=== PATIENT | male | born 1950 | race Caucasian/White ===

== ENCOUNTER 2017-07-17 09:08 | Outpatient (CLI) | payer MEDICARE, BC ==
--- NOTE | 2017-07-17 12:15 | RAD ---
LUMBAR SPINE SERIES 3 VIEWS WITH FLEXION AND EXTENSION: HISTORY: Back and right hi pain. FINDINGS: Vertebral bodies are normal in height. There are prominent osteophytic changes involving the course of the spine. There is mild disk narrowing at L1-2 and L4-5 as well as L5-S1. There are pronounced degenerative facet changes of the lower lumbar spine. There is a minimal spondylolisthesis of L5 on S1 not definitely changed between flexion and extension. IMPRESSION: Arthritic changes of the spine as discussed above. POS: ESPERANZA
--- NOTE | 2017-07-17 13:11 | CT ---
CT LUMBAR SPINE NONCONTRAST: DATE: 07-17-17 HISTORY: 66-year-old male with lumbar radiculopathy. Low back pain radiating to right hip. COMPARISON: No prior CTs of the lumbar spine. FINDINGS: Vertebral body heights are maintained. There is mild disc space narrowing at several levels. There is no severe disc space narrowing at any level. There is vacuum disc phenomenon at L5-S1. There is Nakia rop's disease (degenerative changes between hypertrophic kissing spinus processes) at L3-4 and L4-5. T12-L1: Essentially normal. L1-2: Minimal disc bulge. No high grade central stenosis. Bilateral moderate neural foraminal stenosi s, left greater than right. L2-3: Mild disc bulge. Mild central spinal canal stenosis. Mild to moderate right neural foraminal st enosis. Mild left neural foraminal stenosis. L3-4: Diffuse disc bulge. Moderate bilateral neural foraminal stenosis. Ligamentum flavum thickening. Mild bilateral degenerative facet hypertrophy. Moderate central spinal canal stenosis. L4-5: Diffuse disc bulge. Mild right degenerative facet hypertrophy. Moderate right neural foraminal stenosis. Moderate left degenerative facet hypertrophy and ossification of left ligamentum flavum. Mo derate left neural foraminal stenosis. Moderate central spinal canal stenosis. L5-S1: Bilateral L5 pars interarticularis defects cause a grade I anterolisthesis of L5 on S1. Diffus e disc bulge. No central spinal canal stenosis. Severe left neural foraminal stenosis. Moderate to se moody right neural foraminal stenosis. IMPRESSION: 1. Bilateral L5 spondylolysis causing grade I spondylolisthesis at L5-S1 causing severe left neural f oraminal stenosis and moderate to severe right neural foraminal stenosis at that level. 2. Moderate central spinal canal stenosis at L3-4 and L4-5. 3. Other levels of moderate neural foraminal stenosis. POS: C
== END 2017-07-17 09:09 | disposition home or self-care (01) ==
LOC: TBSIIMAG 09:08
PROVIDERS: ATTEND Surgery
DX: M47.26 Other spondylosis with radiculopathy, lumbar region (principal); M43.17 Spondylolisthesis, lumbosacral region; M48.061 Spinal stenosis, lumbar region without neurogenic claudication; M46.96 Unspecified inflammatory spondylopathy, lumbar region
CPT/HCPCS: 72120; 72131; 72148

== ENCOUNTER 2017-07-21 15:52 | Outpatient (CLI) | payer MEDICARE, BC ==
--- NOTE | 2017-07-21 20:52 | MRI ---
MRI LUMBAR SPINE 07/21/17 COMPARISON: Comparison made to previous exam from 08/13/15. HISTORY: Lumbar radiculopathy, M54.16. Multiplanar and multisequence noncontrast enhanced MRI images of the lumbar spine obtained. T12-L1: Unremarkable. L1-2: There is some mild disc desiccation and mild facet hypertrophy. The central canal and neural fo ramen are patent. No significant interval changes seen. L2-3: Again some disc desiccation is seen. There is a broad based disc bulge with bilateral facet hyp ertrophy. No significant degree of central spinal stenosis seen. There is moderate bilateral neural f oraminal narrowing, unchanged since the previous comparison exam. L3-4: Disc desiccation is seen. There is a broad based disc bulge and bilateral facet hypertrophy. Th is results in mild to moderate central and lateral recess stenosis, slightly more prominent than on t he previous comparison exam. Mild to moderate bilateral neural foraminal narrowing is seen. L4-5: Disc desiccation is seen. There is a broad based disc bulge with bilateral facet and ligamentum flavum hypertrophy. This is not significantly changed since the previous comparison exam. Moderate b ilateral neural foraminal narrowing also seen. L5-S1: There is bilateral facet and ligamentum flavum hypertrophy. There is mild anterolisthesis of L 5 on S1. This results in moderate right and moderate to severe left L5-S1 neural foraminal narrowing. There is a broad based central and neural foraminal disc protrusion. Modic changes seen along the anterior inferior aspect of L2 as well as superior anterior aspect of th e L3 end plate as well as superior posterior L4 end plate. IMPRESSION: Multilevel lumbar disc degenerative changes and neural foraminal narrowing as described above. Some m ild increased central and neural foraminal narrowing is seen at L2-3 and L3-4. POS: OFF
== END 2017-07-21 15:53 | disposition home or self-care (01) ==
LOC: TBSIIMAG 15:52
PROVIDERS: ATTEND Surgery
DX: M47.26 Other spondylosis with radiculopathy, lumbar region (principal); M48.061 Spinal stenosis, lumbar region without neurogenic claudication
CPT/HCPCS: 72148

== ENCOUNTER 2017-09-02 11:38 | Outpatient (CLI) | payer MEDICARE, BC ==
--- NOTE | 2017-09-03 00:54 | EKG ---
Test Reason : Blood Pressure : / mmHG Vent. Rate : 057 BPM Atrial Rate : 057 BPM P-R Int : 160 ms QRS Dur : 088 ms QT Int : 412 ms P-R-T Axes : -06 051 037 degrees QTc Int : 401 ms Poor data quality, interpretation may be adversely affected Sinus bradycardia with sinus arrhythmia Otherwise normal ECG When compared with ECG of 16-APR-2016 16:32, No significant change was found Confirmed by BHARAT MORALES, . S. (4) on 09/03/2017 12:53:51 AM Referred By: SCOTT Confirmed By:DR. Vandana NICHOLSON MD
== END 2017-09-02 11:39 | disposition home or self-care (01) ==
LOC: LABBT 11:38
PROVIDERS: ATTEND Surgery
DX: Z01.818 Encounter for other preprocedural examination (principal)
CPT/HCPCS: 93005; 93010

== ENCOUNTER 2017-09-04 14:40 | Outpatient (CLI) | payer MEDICARE, BC ==
[2017-09-04 15:08] LABS: INR-International Normal Ratio 1.1; PTT 25.2 SEC (22.9-36.1)
== END 2017-09-04 14:41 | disposition home or self-care (01) ==
LOC: LABBT 14:40
PROVIDERS: ATTEND Surgery
DX: Z01.812 Encounter for preprocedural laboratory examination (principal); Z01.810 Encounter for preprocedural cardiovascular examination; M48.061 Spinal stenosis, lumbar region without neurogenic claudication; M43.16 Spondylolisthesis, lumbar region; M54.16 Radiculopathy, lumbar region
CPT/HCPCS: 85610; 85730

== ENCOUNTER 2017-09-10 08:36 | Day surgery (SDC) | payer MEDICARE, BC ==
[2017-09-02 12:02] VITALS: BMI 32.5
[2017-09-10] MEDS ORDERED: Midazolam HCl 2 mg/2 ml Vial ONE (10:03)
[2017-09-10] MEDS ORDERED: Fentanyl 100 MCG/2 ML VIAL ONE ×3 (10:03→15:48)
[2017-09-10] MEDS ORDERED: Thrombin 5000 UNITS/5 ML VIAL ONE ×2 (10:06→13:48)
[2017-09-10] MEDS ORDERED: Bacitracin Zinc Ointment 30 gm TUBE ONE (10:06)
[2017-09-10] MEDS ORDERED: Sodium Chloride 0.9% 0 ML ONE (10:07)
[2017-09-10] MEDS ORDERED: Morphine 2 MG/ML SYRINGE ONE (10:18)
[2017-09-10] MEDS ORDERED: CEFAZOLIN/Water 2 GM/20 ML SYRINGE ONE (10:28)
[2017-09-10] MEDS ORDERED: Thrombin 20 THOU.UNITS/20 ML VIAL ONE (11:03)
[2017-09-10] MEDS ORDERED: Ondansetron HCl/PF 4 MG/2 ML Vial IVP PRN ×2 (15:23→16:39)
[2017-09-10] MEDS ORDERED: Promethazine HCl 25 MG/ML VIAL IM PRN (15:23)
[2017-09-10] MEDS ORDERED: Fleet Enema 133 ML BOT PR PRN (15:23)
[2017-09-10] MEDS ORDERED: traMADol HCl 50 MG TAB PO PRN (15:23)
[2017-09-10] MEDS ORDERED: Milk Of Magnesia 30 ML UDCUP PO PRN (15:23)
[2017-09-10] MEDS ORDERED: Acetaminophen 325 MG TAB PO PRN (15:23)
[2017-09-10] MEDS ORDERED: Bisacodyl 10 MG SUPP PR PRN (15:23)
[2017-09-10] MEDS ORDERED: Mag-Al 1200 mg/1200 mg/30 ML UDCUP PO PRN (15:23)
[2017-09-10] MEDS ORDERED: Morphine 2 MG/ML SYRINGE SLOW IVP PRN (15:23)
[2017-09-10] MEDS ORDERED: Acetaminophen/Codeine 30-300mg Tablet PO PRN (15:23)
[2017-09-10] MEDS ORDERED: Famotidine 20 MG TAB PO PRN (15:25)
[2017-09-10] MEDS ORDERED: Glycopyrrolate 0.2 MG/ML 5 ML SYRINGE ONE (16:04)
[2017-09-10] MEDS ORDERED: Ondansetron HCl/PF 4 MG/2 ML Vial ONE (16:04)
[2017-09-10] MEDS ORDERED: Metoclopramide HCl 10 MG/2 ML VIAL ONE (16:04)
[2017-09-10] MEDS ORDERED: PROPOFOL 200 MG/20 ML VIAL ONE (16:04)
[2017-09-10] MEDS ORDERED: Ketorolac Tromethamine 30 MG/ML VIAL ONE (16:04)
[2017-09-10] MEDS ORDERED: diphenhydrAMINE 50 MG/ML VIAL ONE (16:04)
[2017-09-10] MEDS ORDERED: ePHEDrine/0.9% NaCl/PF SYRINGE 50 mg/10 ml ONE (16:04)
[2017-09-10] MEDS ORDERED: Lidocaine 1% PF 5 ML VIAL ONE (16:04)
[2017-09-10] MEDS ORDERED: PHENYLEPHRINE-NS 100 MCG/ML 10 ML SYRINGE ONE (16:04)
[2017-09-10] MEDS ORDERED: HYDROmorphone 0.5 MG/0.5 ML SYRINGE ONE (16:15)
[2017-09-10] MEDS ORDERED: Non-Formulary Medication 1 EACH PO PRN (16:39)
[2017-09-10] MEDS ORDERED: Promethazine HCl 25 MG/ML VIAL IM/IV PRN (16:39)
[2017-09-10] MEDS ORDERED: HYDROmorphone 2 MG/ML VIAL SLOW IVP PRN (16:39)
[2017-09-10] MEDS ORDERED: CEFAZOLIN/Water 2 GM/20 ML SYRINGE SLOW IVP SCH (18:00)
[2017-09-10] MEDS: Sodium Chloride 0.9% 1,000 ML IV SCH ×2 (18:46→20:13)
[2017-09-10] MEDS: Morphine 5 MG/ML SYRINGE SLOW IVP PRN (20:24)
[2017-09-10] MEDS: HYDROcodone/Acetaminophen 7.5/325 mg Tablet PO PRN (21:53)
[2017-09-11] MEDS: HYDROcodone/Acetaminophen 7.5/325 mg Tablet PO PRN ×3 (01:52→10:12)
[2017-09-11] MEDS: CEFAZOLIN/Water 2 GM/20 ML SYRINGE SLOW IVP SCH ×2 (03:44→12:04)
[2017-09-11] MEDS: Morphine 5 MG/ML SYRINGE SLOW IVP PRN ×4 (06:27→12:02)
[2017-09-11] MEDS ORDERED: CONFIRM ALL DAY 1 DOSES ARE TIMED FOR DAY 1 FS SCH (09:00)
[2017-09-11] MEDS: Multivit, Therapeutic 1 TAB PO SCH ×2 (09:03→10:12)
[2017-09-11] MEDS: tiZANidine HCl 4 MG TAB PO PRN ×2 (10:11→20:57)
[2017-09-11] MEDS ORDERED: methylPREDNISolone 4 mg Tablet PO SCH (12:00)
[2017-09-11] MEDS: Gabapentin 100 MG CAP PO SCH ×2 (12:09→22:21)
[2017-09-11] MEDS: methylPREDNISolone 4 mg Tablet PO SCH ×3 (13:41→21:02)
[2017-09-11] MEDS: HYDROcodone/Acetaminophen 10/325 mg Tablet PO PRN ×3 (13:41→22:21)
--- NOTE | 2017-09-11 16:30 | OP ---
DATE OF SURGERY: 09/10/2017 SURGEON: Jersey Nicole M.D. WATER SOFTENER SERVICER: Pancho Maynard PA-C OR: 12. WOUND: Type 1 wound. PREPROCEDURE DIAGNOSES: Multilevel lumbar stenosis with lumbar spondylolisthesis and L5 spondylolist hesis with bilateral L5 radiculopathy. POSTPROCEDURE DIAGNOSES: Multilevel lumbar stenosis with lumbar spondylolisthesis and L5 spondylolis thesis with bilateral L5 radiculopathy. PROCEDURES PERFORMED: 1. L4-L5, L5-S1 laminectomies, partial facetectomies and foraminotomies over the L4, L5, and S1 nerv e roots. 2. Placement of screw julián fixation L5-S1 bilaterally with posterolateral arthrodesis L5-S1 bilateral ly with local bone autograft obtained from same incision and BMP, arthrodesis posterolateral L5-S1 wi th screw julián fixation. DESCRIPTION OF PROCEDURE: After informed consent was obtained from the patient, the patient was brou ght to OR. Proper patient pause and identification was carried out. He was placed prone on the oper ating room table and all appropriate points were padded. We identified the L4, L5 and S1 dorsal spin es and a linear xiang was made over this region. This area was sterilely cleansed, prepared, and drap ed. Proper patient pause and identification was carried out. The wound was then opened with a combi nation of sharp, monopolar and blunt dissection and the L4, L5 and S1 dorsal spines and lamina were e xposed, the L5 transverse processes and sacral ala were also exposed along with the L5-S1 facets in t heir entirety. Copious irrigation occurred. Hemostasis was maximized throughout. We then identifie d the L4, L5 and S1 regions and L4, L5 and S1 laminectomies, facetectomies and foraminotomies were pe rformed. We were careful to preserve the facet complexes at L4-L5. We had excellent decompression o f the L5 nerve roots bilaterally and the right L5 nerve root, more edematous and erythematous than th e left L5 nerve root. Nevertheless, we assured excellent freedom. We then turned our attention to p lacement of screw julián fixation given the spondylolisthesis from the obvious pars defects bilaterally at L5. We placed screw julián fixation at L5-S1. Final tightening occurred. Again, a copious irrigati on and hemostasis was maximized and performed again and decortication over the posterolateral region then occurred. We then placed local bone autograft taken from same incision and BMP over the postero lateral gutters for arthrodesis. We then assured hemostasis in the wound and DuraSeal was placed ove r the dura to protect the dura. Although no CSF leak was encountered, the wound was then closed in a natomic layers following the sprinkling of vancomycin powder. The patient then emerged from anesthes ia.
--- NOTE | 2017-09-11 18:29 | PRG ---
DATE OF SERVICE: 09/11/2017 Mr. Beverly is postoperative day #1 from L4-S1 laminectomies, partial facetectomies and foraminotomie s for decompression of the L5 nerve roots with L5-S1 screw julián fixation and fusion. The biggest issu e overnight has been pain in particular in the back and into the left lower extremity. This is a rad iculitis, not surprising given the amount of compression. He had his L5 nerve root; it was more comp ressed preoperatively than his right L5 nerve root. Nevertheless, the right L5 nerve root appeared t o be more erythematous during surgery. We achieved excellent decompression on fluoroscopy and CT luzma ging intraoperatively is very pleased with our construct. This morning, he states that the pain is w hen he stands up and he feels as if he cannot put weight on his leg; however, on exam, he has excelle nt strength throughout his bilateral lower extremity myotomes and as such, I do not suspect a neurolo gical deficit here, but simply a radiculitis likely involving the left L5 nerve root. We will emphas ize effective pain management control and initiate Medrol Dosepak and gabapentin along with physiatry and social work consultations. We will continue to work on mobilizing the patient; however, at this point, I have let him know that I will be fine with resting throughout the morning and early afterno on and attempting later today. He will simply need time to recover. I do not think it is necessary to pursue imaging again given the excellent strength throughout his lower extremity myotomes.
[2017-09-11] MEDS: Sodium Chloride 0.9% 1,000 ML IV SCH (20:26)
[2017-09-12] MEDS: Sodium Chloride 0.9% 1,000 ML IV SCH ×2 (04:00→21:47)
[2017-09-12] MEDS: HYDROcodone/Acetaminophen 10/325 mg Tablet PO PRN ×5 (05:19→21:48)
[2017-09-12] MEDS: Gabapentin 100 MG CAP PO SCH ×3 (05:19→21:46)
[2017-09-12] MEDS: Multivit, Therapeutic 1 TAB PO SCH (09:19)
[2017-09-12] MEDS: methylPREDNISolone 4 mg Tablet PO SCH ×3 (09:20→17:43)
[2017-09-12] MEDS ORDERED: methylPREDNISolone 4 mg Tablet PO SCH (21:00)
[2017-09-13] MEDS: HYDROcodone/Acetaminophen 10/325 mg Tablet PO PRN ×5 (02:38→21:50)
[2017-09-13] MEDS: Gabapentin 100 MG CAP PO SCH ×3 (06:25→21:51)
[2017-09-13] MEDS: Multivit, Therapeutic 1 TAB PO SCH (08:15)
[2017-09-13] MEDS: methylPREDNISolone 4 mg Tablet PO SCH ×4 (10:08→21:51)
[2017-09-13] MEDS: Sodium Chloride 0.9% 1,000 ML IV SCH ×2 (11:17→22:45)
[2017-09-14] MEDS: HYDROcodone/Acetaminophen 10/325 mg Tablet PO PRN ×5 (03:14→21:42)
[2017-09-14] MEDS: Gabapentin 100 MG CAP PO SCH ×3 (05:58→21:42)
[2017-09-14] MEDS: Multivit, Therapeutic 1 TAB PO SCH (08:30)
[2017-09-14] MEDS: methylPREDNISolone 4 mg Tablet PO SCH ×3 (08:31→17:25)
--- NOTE | 2017-09-14 09:08 | PRG ---
DATE OF SERVICE: 09/14/2017 Mr. Beverly continues to recover from his lumbar laminectomy fusion. He is doing well. He states he does have some left buttock pain, but it is certainly improving. He has been mobilizing with more e ase. I am very pleased with how he is doing at this point. His strength is excellent. We will plan to begin to work towards dismissal over the next day or two. Pain control is the biggest issue.
[2017-09-14] MEDS: Sodium Chloride 0.9% 1,000 ML IV SCH (11:41)
[2017-09-15] MEDS: HYDROcodone/Acetaminophen 10/325 mg Tablet PO PRN ×4 (01:32→13:23)
[2017-09-15] MEDS: Sodium Chloride 0.9% 1,000 ML IV SCH (04:16)
[2017-09-15] MEDS: Gabapentin 100 MG CAP PO SCH ×2 (05:24→13:23)
[2017-09-15] MEDS ORDERED: methylPREDNISolone 4 mg Tablet PO SCH (08:00)
[2017-09-15] MEDS: Multivit, Therapeutic 1 TAB PO SCH (09:36)
--- NOTE | 2017-09-15 12:30 | PRG ---
DATE OF SERVICE: 09/15/2017 HISTORY: Mr. Beverly is now postoperative day #05, having undergone a posterior lumbar fusion with Dameon Nicole. The patient continues to improve. He has been ambulating in the halls with a rolling wal ker. He does have occasional left buttock pain with increased activity, but states overall this is i mproving. He had a bowel movement yesterday and states that he does continue to feel better. He ludy erated a regular diet. He is voiding and his pain is controlled satisfactorily with oral pain medica tions. He remains at his neurologic baseline with good strength in the bilateral lower extremities. I did uncover his incision and the incision is healing well, cosmo in place without any dehiscence , drainage or erythema. At this time, the patient is stable for discharge at any time. We will have case management, arrange home health, PT. I have provided appropriate prescriptions including presc ription for a rolling walker. Again, we hope by this afternoon, the patient will be stable for disch arge. Please call with any changes in the patient's neurologic status. Appropriate outpatient [facility] appointments have already been scheduled. Pancho Maynard PA-C dictating for Dr. Jersey Nicole.
[2017-09-15 14:12] VITALS: BP 129/69; TEMP 99
[2017-09-16] MEDS ORDERED: methylPREDNISolone 4 mg Tablet PO SCH (08:00)
--- NOTE | 2017-09-16 11:58 | DIS ---
DATE OF ADMISSION: 09/10/2017 DATE OF DISCHARGE: 09/15/2017 DISCHARGE DIAGNOSES: 1. Multilevel lumbar stenosis. 2. Lumbar spondylolisthesis. HOSPITAL COURSE: Mr. Beverly was admitted to [facility] to undergo L4-S1 laminectomies with L5-S1 posterior lumbar fusion with Dr. Nicole. The patient tolerated the procedure well and was kep t for several overnight stays for adequate pain control as he did have some left buttock pain postope ratively. At the time of discharge the patient was very pleased with his outcome. He did have some continued left buttock pain, although states overall it was improving daily. He was ambulating, tole rating a solid diet, pain controlled with oral medications and voiding spontaneously. Appropriate ou tpatient follow up appointments were scheduled and patient education was provided.
== END 2017-09-15 14:10 | disposition home or self-care (01) ==
LOC: SDC 08:36 → EDSTATUS 13:00 → 3SE 17:57 → SURG B 09-11 16:31 → SURG A 09-11 16:36 → SDC 09-15 14:10
PROVIDERS: ATTEND Surgery
PROC: 01NB0ZZ Release Lumbar Nerve, Open Approach (ICD-10-PCS; principal; 2017-09-10)
DX: M48.061 Spinal stenosis, lumbar region without neurogenic claudication (principal); M43.16 Spondylolisthesis, lumbar region; M54.16 Radiculopathy, lumbar region; K21.9 Gastro-esophageal reflux disease without esophagitis; M19.90 Unspecified osteoarthritis, unspecified site; Z79.899 Other long term (current) drug therapy; Z98.41 Cataract extraction status, right eye; Z98.42 Cataract extraction status, left eye; Z96.1 Presence of intraocular lens; Z96.651 Presence of right artificial knee joint; Z90.49 Acquired absence of other specified parts of digestive tract; Z98.890 Other specified postprocedural states
CPT/HCPCS: 20930; 20936; 22612; 22840; 63047; 63048; 76001; 96374 ×2; 97110 ×3; 97116 ×3; 97139 ×4; 97530; 97535; C1713 ×2; G8978; G8979; G8987; G8988; J2270; A4216; J0131; J1170; J1200; J1885; J2001; J2250; J2405; J2704; J2765; J3010; J3370; J3490

== ENCOUNTER 2017-10-14 17:25 | Emergency (ER) | payer MEDICARE, BC ==
--- NOTE | 2017-10-14 20:32 | ULT ---
VENOUS DUPLEX SONOGRAM RIGHT LOWER EXTREMITY: 10/14/17 HISTORY: Right leg pain and swelling. FINDINGS: The right common femoral vein and greater saphenous junction were evaluated along with the femoral, d eep femoral, popliteal, and posterior tibial veins. There is good color and spectral doppler flow, co mpression, and augmentation. At the right popliteal fossa, a lobular fluid collection measures up to 4.8 cm length x 1.5 cm depth. IMPRESSION: 1. No sonographic evidence of DVT right lower extremity. 2. Large right Arita's cyst. POS: ESPERANZA
== END 2017-10-14 20:15 | disposition home or self-care (01) ==
LOC: ERS 17:25
DX: R60.0 Localized edema (principal); Z87.442 Personal history of urinary calculi; Z79.891 Long term (current) use of opiate analgesic; Z79.899 Other long term (current) drug therapy

== ENCOUNTER 2017-11-02 14:21 | Outpatient (CLI) | payer MEDICARE, BC ==
--- NOTE | 2017-11-02 16:20 | RAD ---
2 VIEWS LUMBAR SPINE: Date: 11/02/17 HISTORY: Lumbar radiculopathy. Follow-up to back surgery, which patient had performed on 09/10/17. Patient com plains of low back pain that extends down left leg. COMPARISON: 07/17/17. FINDINGS: There have been interval postsurgical changes related to posterior fusion at the L5-S1 level with bip edicular screws and posterior rods transfixing this level. Grade I anterolisthesis of L5 on S1 is aga in seen. Laminectomy defect is present at this level. Multilevel degenerative changes are again seen within the cervical spine, overall similar to the prio r exam. Vertebral body heights are within normal limits. No other interval change. IMPRESSION: Postsurgical changes related to interval posterior fusion at the lumbosacral junction. Multilevel deg enerative changes are again seen throughout the lumbar spine. POS: ESPERANZA
== END 2017-11-02 14:22 | disposition home or self-care (01) ==
LOC: TBSIIMAG 14:21
PROVIDERS: ATTEND Surgery
DX: M47.26 Other spondylosis with radiculopathy, lumbar region (principal); Z98.1 Arthrodesis status
CPT/HCPCS: 72100

== ENCOUNTER 2018-07-30 07:54 | Day surgery (SDC) | payer MEDICARE, BC ==
[2018-07-29 10:48] VITALS: BMI 29.9
[2018-07-30] MEDS ORDERED: Bupivacaine/Epinephrine 0.25% 30 ML VIAL ONE (08:53)
[2018-07-30] MEDS ORDERED: CEFAZOLIN 2 GM/50 ML BAG ONE (08:53)
[2018-07-30] MEDS ORDERED: Midazolam HCl 2 mg/2 ml Vial ONE (09:00)
[2018-07-30] MEDS ORDERED: Fentanyl 100 MCG/2 ML VIAL ONE (09:00)
[2018-07-30 09:10] LABS: #Basophils 0.1 thou/uL (0.0-0.2); #Eosinphils 0.3 thou/uL (0.0-0.7); #Lymphocytes 2.8 thou/uL (1.20-3.40); #Monocytes 0.4 thou/uL (0.11-0.59); %Basophils 1.7 % (0.0-1.0); %Eosinophils 4.6 % (0.0-10.0); %Lymphocytes 41.8 % (21.0-51.0); %Monocytes 6.5 % (0.0-10.0); %Neutrophils 45.5 % (42.0-75.0); Hemoglobin 14.2 g/dL (14.0-18.0); Mean Corpuscular HGB CONC 33.9 g/dL (32.0-36.0); Mean Corpuscular Hemoglobin 29.8 pg (27.0-31.0); Mean Corpuscular Volume 87.8 fL (78.0-98.0); Mean Platelet Volume 8.2 fL (7.4-10.4); Platelet Count 180 thou/uL (130-400); RBC Distribution Width 12.6 % (11.5-14.5); Red Blood Cell (RBC) Count 4.78 mill/uL (4.70-6.10); White Blood Cell (WBC) Count 6.6 thou/uL (4.8-10.8)
[2018-07-30 09:17] LABS: ALT (SGPT) 15 U/L (8-55); AST (SGOT) 14 U/L (5-34); Albumin 3.8 g/dL (3.4-4.8); Alkaline Phosphatase 89 U/L (40-150); Anion Gap 11 mmol/L (10-20); BUN (Urea Nitrogen) 13 mg/dL (8.4-25.7); Bilirubin, Total 0.5 mg/dL (0.2-1.2); Calc. Creatinine Clearance 121 mL/min (70-130); Calcium 9.4 mg/dL (7.8-10.44); Carbon Dioxide 25 mmol/L (23-31); Chloride 107 mmol/L (98-107); Estimated GFR-MDRD 89; Globulin 2.7 g/dL (2.4-3.5); Glucose 98 mg/dL (80-115); Protein, Total 6.5 g/dL (5.8-8.1); Sodium 139 mmol/L (136-145)
--- NOTE | 2018-07-30 11:38 | OP ---
DATE OF PROCEDURE: 07/30/2018 PREOPERATIVE DIAGNOSIS: Right inguinal hernia. PROCEDURE PERFORMED: Right inguinal hernia repair with mesh. INDICATIONS: A 67-year-old male who has a painful right groin bulge, found to have a hernia. FINDINGS: Right direct inguinal hernia. DESCRIPTION OF PROCEDURE: After informed consent was obtained, the patient was taken to the operating room and given general endotracheal anesthesia, and placed in the supine position. Abdomen was prepped and draped in the usual fashion. Local anesthesia was infiltrated subcutaneously and deep. A transverse right inguinal incision was performed. Subcu divided sharply. The fascia of external oblique was incised in direction of fibers through the external ring. Spermatic cord isolated with a Oseas drain. The hernia sac was dissected from surrounding cord structures down to the floor, circumscribed, and reduced. Reduction maintained with a PHS hernia system. The posterior layer placed in the preperitoneal space, anterior was laid out, sutured to the pubic tubercle medially, laterally, tucked under the external oblique fashion. The cord was placed anatomic and the fascia was closed with a running 3-0 Vicryl. Yue was closed with interrupted 3-0 Vicryl and skin was closed with a running subcuticular 4-0 Rapide. Steri-Strips applied. Sterile bandage applied. The patient tolerated the procedure well and transferred to Recovery in good condition. Sponge and needle count verified correct x2. Job ID: [id number]
[2018-07-30] MEDS ORDERED: HYDROcodone/Acetaminophen 5/325 mg Tablet ONE (12:58)
== END 2018-07-30 13:05 | disposition home or self-care (01) ==
LOC: CANPRESDC → SDC 07:54
PROVIDERS: ATTEND Surgery
PROC: 0YU50JZ Supplement Right Inguinal Region with Synthetic Substitute, Open Approach (ICD-10-PCS; principal; 2018-07-30)
DX: K40.90 Unilateral inguinal hernia, without obstruction or gangrene, not specified as recurrent (principal); Z79.82 Long term (current) use of aspirin; Z79.899 Other long term (current) drug therapy; Z88.8 Allergy status to other drugs, medicaments and biological substances
CPT/HCPCS: 49505; 80053; 85025; 93005; C1781; 36415; 93010; J2250; J3010

== ENCOUNTER 2018-09-14 16:33 | Emergency (ER) | payer MEDICARE, BC ==
[2018-09-14] MEDS ORDERED: HYDROcodone/Acetaminophen 10/325 mg Tablet ONE (17:33)
--- NOTE | 2018-09-14 18:49 | RAD ---
RIGHT SHOULDER 3 VIEWS: Date: 09/14/18 HISTORY: Right shoulder pain, possible right shoulder dislocation. 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 No evidence for acute fracture or dislocation. IMPRESSION: Extensive degenerative and osteoarthrosis changes of the AC joint and glenohumeral joint without acut e fracture or dislocation. POS: ESPERANZA
== END 2018-09-14 17:41 | disposition home or self-care (01) ==
LOC: ERS 16:33
DX: S43.004A Unspecified dislocation of right shoulder joint, initial encounter (principal); X58.XXXA Exposure to other specified factors, initial encounter

== ENCOUNTER 2018-09-22 03:02 | Outpatient (CLI) | payer MEDICARE, BC ==
[2018-09-22 14:36] LABS: #Basophils 0.1 thou/uL (0.0-0.2); #Eosinphils 0.4 thou/uL (0.0-0.7); #Lymphocytes 3.2 thou/uL (1.20-3.40); #Monocytes 0.6 thou/uL (0.11-0.59); #Neutrophils 3.6 thou/uL (1.40-6.50); %Basophils 1.2 % (0.0-1.0); %Lymphocytes 40.1 % (21.0-51.0); %Neutrophils 45.7 % (42.0-75.0); Hemoglobin 14.4 g/dL (14.0-18.0); Mean Corpuscular HGB CONC 33.2 g/dL (32.0-36.0); Mean Corpuscular Hemoglobin 29.7 pg (27.0-31.0); Mean Corpuscular Volume 89.6 fL (78.0-98.0); Mean Platelet Volume 8.3 fL (7.4-10.4); Platelet Count 178 thou/uL (130-400); RBC Distribution Width 12.8 % (11.5-14.5); Red Blood Cell (RBC) Count 4.83 mill/uL (4.70-6.10); White Blood Cell (WBC) Count 7.9 thou/uL (4.8-10.8)
[2018-09-22 14:59] LABS: Anion Gap 13 mmol/L (10-20); BUN (Urea Nitrogen) 17 mg/dL (8.4-25.7); Calc. Creatinine Clearance 0 mL/min (70-130); Calcium 9.5 mg/dL (7.8-10.44); Carbon Dioxide 24 mmol/L (23-31); Chloride 107 mmol/L (98-107); Estimated GFR-MDRD 79; Glucose 80 mg/dL (80-115); Potassium 3.9 mmol/L (3.5-5.1); Sodium 140 mmol/L (136-145)
--- NOTE | 2018-09-24 08:55 | EKG ---
Test Reason : Blood Pressure : / mmHG Vent. Rate : 064 BPM Atrial Rate : 064 BPM P-R Int : 176 ms QRS Dur : 086 ms QT Int : 410 ms P-R-T Axes : 042 066 063 degrees QTc Int : 422 ms Normal sinus rhythm Cannot rule out Anterior infarct , age undetermined Abnormal ECG When compared with ECG of 30-JUL-2018 08:37, No significant change was found Confirmed by DR. Chicho BARKER ([id number]) on 09/24/2018 8:55:27 AM Referred By: FREDO Confirmed By:DR. Chicho BARKER
== END 2018-09-22 03:03 | disposition home or self-care (01) ==
LOC: LABBT 03:02
PROVIDERS: ATTEND Orthopaedic Surgery
DX: Z01.818 Encounter for other preprocedural examination (principal); M75.101 Unspecified rotator cuff tear or rupture of right shoulder, not specified as traumatic
CPT/HCPCS: 80048; 85025; 93005; 93010

== ENCOUNTER 2018-09-24 08:47 | Day surgery (SDC) | payer MEDICARE, BC ==
[2018-09-22 13:36] VITALS: BMI 30.3
[2018-09-24] MEDS ORDERED: CEFAZOLIN 2 GM/50 ML BAG ONE (09:18)
[2018-09-24] MEDS ORDERED: Midazolam HCl 2 mg/2 ml Vial ONE (11:04)
[2018-09-24] MEDS ORDERED: Fentanyl 100 MCG/2 ML VIAL ONE ×2 (11:04→13:12)
[2018-09-24] MEDS ORDERED: Ropivacaine 0.5% HCl/PF (150 MG/30 ML VIAL) ONE (11:33)
[2018-09-24] MEDS ORDERED: Ropivacaine 0.2% HCl/PF 20 ML ONE (11:35)
[2018-09-24] MEDS ORDERED: Promethazine HCl 25 MG/ML VIAL IM PRN (12:56)
[2018-09-24] MEDS ORDERED: HYDROcodone/Acetaminophen 5/325 mg Tablet PO PRN ×2 (12:56)
[2018-09-24] MEDS ORDERED: Ropivacaine 0.2% 550 ML 550 ML NERVE BLCK SCH (12:56)
[2018-09-24] MEDS ORDERED: Zolpidem Tartrate 5 MG TAB PO PRN (12:56)
[2018-09-24] MEDS ORDERED: Ondansetron PF 4 MG/2 ML Vial IVP PRN (12:56)
[2018-09-24] MEDS ORDERED: traMADol HCl 50 MG TAB PO PRN ×2 (12:56)
[2018-09-24] MEDS ORDERED: Dexamethasone 20 MG/5 ML VIAL ONE (13:59)
[2018-09-24] MEDS ORDERED: Glycopyrrolate 0.2 MG/ML 5 ML SYRINGE ONE (13:59)
[2018-09-24] MEDS ORDERED: PROPOFOL 200 MG/20 ML VIAL ONE (13:59)
[2018-09-24] MEDS ORDERED: Lidocaine 1% PF 5 ML VIAL ONE (13:59)
[2018-09-24] MEDS ORDERED: Ondansetron PF 4 MG/2 ML Vial ONE (13:59)
[2018-09-24] MEDS ORDERED: Rocuronium Bromide 10 MG/ML (10ML VIAL) ONE (13:59)
[2018-09-24] MEDS ORDERED: ePHEDrine 50 MG/ML VIAL ONE (13:59)
[2018-09-24] MEDS ORDERED: Ketorolac Tromethamine 30 MG/ML VIAL ONE (13:59)
--- NOTE | 2018-09-24 19:24 | OP ---
DATE OF PROCEDURE: 09/24/2018 PREOPERATIVE DIAGNOSIS: Rotator cuff tear, right. POSTOPERATIVE DIAGNOSIS: Rotator cuff tear, right. PROCEDURE: Open rotator cuff repair. ANESTHESIA: General. BLOOD LOSS: Less than 100. SPECIMENS: None. COMPLICATIONS: None. ASSISTANTS: Otto. DESCRIPTION OF PROCEDURE: The patient was taken to the operating room, where general anesthesia was induced. The patient was placed in beach-chair position. Right arm was prepped and draped in usual sterile fashion. Then I did my standard open approach starting of the acromion, extending distally. I opened the raphe between the anterior and middle thirds of the deltoid, taking care to preserve the nerve distally for anterior inferior acromioplasty. CA ligament was taken down. Hemostasis was obtained for the rotator cuff tear and mobilized subacromial bursa and tear using a small Sanjiv blunt elevator and placed a Casey suture through the greater tuberosity and four sutures were passed up to the rotator cuff tear and tied down with a good watertight repair using a horizontal mattress sutures and reinforced with a double row using a self-punching SwiveLock device was then drained, irrigated and evacuated. Deltoid was repaired back to bone using four #1 Ethibond sutures. The interval was also closed with 2-0 Vicryl. Subcutaneously tissue was closed with 2-0 Vicryl and skin was closed with cosmo. Sterile dressing was applied. There were no complications. Job ID: [id number]
== END 2018-09-24 16:00 | disposition home or self-care (01) ==
LOC: SDC 08:47
PROVIDERS: ATTEND Orthopaedic Surgery
PROC: 0LM10ZZ Reattachment of Right Shoulder Tendon, Open Approach (ICD-10-PCS; principal; 2018-09-24)
PROC: 0RHJ04Z Insertion of Internal Fixation Device into Right Shoulder Joint, Open Approach (ICD-10-PCS; 2018-09-24)
DX: S46.011A Strain of muscle(s) and tendon(s) of the rotator cuff of right shoulder, initial encounter (principal); M19.90 Unspecified osteoarthritis, unspecified site; K21.9 Gastro-esophageal reflux disease without esophagitis; E78.5 Hyperlipidemia, unspecified; I10 Essential (primary) hypertension; E66.9 Obesity, unspecified; Z68.30 Body mass index [BMI] 30.0-30.9, adult; Z87.891 Personal history of nicotine dependence; Z79.82 Long term (current) use of aspirin; Z79.899 Other long term (current) drug therapy; Z88.8 Allergy status to other drugs, medicaments and biological substances; X50.0XXA Overexertion from strenuous movement or load, initial encounter
CPT/HCPCS: 23412; 97139; A4306; C1713; J1100; J1885; J2001; J2250; J2405; J2704; J2795; J3010; J3490

== ENCOUNTER 2022-06-16 09:05 | Outpatient (CLI) | payer MEDICARE, BC ==
[2022-06-16] MEDS ORDERED: Iopamidol-370 76% 500 ML 1 ML ONE (14:14)
== END 2022-06-16 09:06 | disposition home or self-care (01) ==
LOC: BICCT 09:05
PROVIDERS: ATTEND Surgery
DX: M62.08 Separation of muscle (nontraumatic), other site (principal)
CPT/HCPCS: 74177; 82565; Q9967

== ENCOUNTER 2022-07-24 05:57 | Observation (INO) | payer MEDICARE, BC ==
[2022-07-24] MEDS ORDERED: fentaNYL PF 100 MCG/2 ML SYRINGE ONE (06:25)
[2022-07-24] MEDS ORDERED: Thrombin 5000 UNITS/5 ML VIAL ONE (06:49)
[2022-07-24] MEDS ORDERED: FENTANYL 50 MCG/ML 1 ML VIAL ONE (06:50)
[2022-07-24] MEDS ORDERED: Vancomycin 1 GM VIAL ONE (06:50)
[2022-07-24] MEDS ORDERED: CEFAZOLIN 2 GM VIAL ONE (07:23)
[2022-07-24] MEDS ORDERED: Sodium Chloride 0.9% 100 ML ONE (07:23)
[2022-07-24] MEDS ORDERED: Ondansetron PF 4 MG/2 ML Vial ONE (07:39)
[2022-07-24] MEDS ORDERED: PROPOFOL 200 MG/20 ML VIAL ONE (07:39)
[2022-07-24] MEDS ORDERED: NEOSTIGMINE 3 MG/3 ML SYR 3 MG/3 ML SYRINGE ONE (07:39)
[2022-07-24] MEDS ORDERED: ePHEDrine 50 MG/ML VIAL ONE (07:39)
[2022-07-24] MEDS ORDERED: Rocuronium Bromide 10 MG/ML (10ML VIAL) ONE (07:39)
[2022-07-24 08:20] LABS: SARS-CoV-2 NAA Rapid Test Not Detected (NotDetected)
[2022-07-24] MEDS ORDERED: Acetaminophen/Codeine 30-300mg Tablet PO PRN (09:37)
[2022-07-24] MEDS ORDERED: diphenhydrAMINE 25 MG CAP PO PRN (09:37)
[2022-07-24] MEDS ORDERED: Morphine 4 MG/ML VIAL SLOW IVP PRN (09:37)
[2022-07-24] MEDS ORDERED: Acetaminophen 325 MG TAB PO PRN (09:37)
[2022-07-24] MEDS ORDERED: Ondansetron PF 4 MG/2 ML Vial IVP PRN (09:37)
[2022-07-24] MEDS ORDERED: hydrALAZINE 20 MG/ML VIAL SLOW IVP PRN (09:40)
[2022-07-24] MEDS ORDERED: Methocarbamol 500 MG TAB PO PRN (09:41)
[2022-07-24] MEDS ORDERED: Famotidine 20 MG TAB PO PRN (09:42)
[2022-07-24] MEDS ORDERED: Ondansetron HCl/PF 4 MG/2 ML Vial IVP PRN (09:47)
[2022-07-24] MEDS ORDERED: Promethazine HCl 25 MG/ML VIAL IM PRN (09:47)
[2022-07-24] MEDS ORDERED: Promethazine HCl 25 MG/ML VIAL IVPB PRN (09:47)
[2022-07-24] MEDS: Sodium Chloride 0.9% 1,000 ML IV SCH ×2 (11:21→23:37)
[2022-07-24 12:04] VITALS: BMI 31.1
[2022-07-24] MEDS: CEFAZOLIN 2 GM in Sodium Chloride 0.9% 100 ML IVPB SCH ×2 (15:38→23:38)
[2022-07-24] MEDS: HYDROcodone/Acetaminophen 7.5/325 mg Tablet PO PRN (17:33)
[2022-07-24] MEDS ORDERED: Labetalol HCl 100 MG/20 ML VIAL SLOW IVP PRN (18:08)
[2022-07-24] MEDS ORDERED: Tamsulosin HCl 0.4 MG CAP PO SCH (21:00)
[2022-07-25] MEDS: HYDROcodone/Acetaminophen 7.5/325 mg Tablet PO PRN (03:56)
[2022-07-25] MEDS ORDERED: Famotidine 20 MG TAB PO SCH (08:30)
[2022-07-25] MEDS ORDERED: Polyethylene Glycol 3350 17 GM Packet PO SCH (09:00)
[2022-07-25] MEDS ORDERED: Pregabalin 25 MG CAP PO SCH (09:00)
[2022-07-25 09:31] VITALS: BP 164/84; TEMP 98.1
== END 2022-07-25 11:45 | disposition home or self-care (01) ==
LOC: SDC 05:57 → MSONC 09:37
PROVIDERS: ADMIT Surgery; ATTEND Surgery
PROC: 01NB0ZZ Release Lumbar Nerve, Open Approach (ICD-10-PCS; principal; 2022-07-24)
PROC: 0SB20ZZ Excision of Lumbar Vertebral Disc, Open Approach (ICD-10-PCS; 2022-07-24)
DX: M51.16 Intervertebral disc disorders with radiculopathy, lumbar region (principal); M48.061 Spinal stenosis, lumbar region without neurogenic claudication; N40.1 Benign prostatic hyperplasia with lower urinary tract symptoms; R33.8 Other retention of urine; Z79.899 Other long term (current) drug therapy; Z88.8 Allergy status to other drugs, medicaments and biological substances; Z98.1 Arthrodesis status; Z20.822 Contact with and (suspected) exposure to COVID-19
CPT/HCPCS: 63030; 63035; 96365; 96375 ×2; 96376; G0378 ×2; J3010; U0002; J0360; J2270; J2405; J2704; J3370; J3490; J7050; J7643

== ENCOUNTER 2022-09-15 07:24 | Observation (INO) | payer MEDICARE, BC ==
[2022-09-15 08:15] LABS: #Basophils 0.1 thou/uL (0.0-0.2); #Eosinphils 0.5 thou/uL (0.0-0.7); #Lymphocytes 2.7 thou/uL (1.20-3.40); #Monocytes 0.6 thou/uL (0.11-0.59); #Neutrophils 3.6 thou/uL (1.40-6.50); %Basophils 1.2 % (0.0-1.0); %Eosinophils 7.1 % (0.0-10.0); %Lymphocytes 35.9 % (21.0-51.0); %Monocytes 7.7 % (0.0-10.0); %Neutrophils 48.1 % (42.0-75.0); Hemoglobin 16.7 g/dL (14.0-18.0); Mean Corpuscular HGB CONC 33.6 g/dL (32.0-36.0); Mean Corpuscular Hemoglobin 31.3 pg (27.0-31.0); Mean Corpuscular Volume 93.2 fl (78.0-98.0); Mean Platelet Volume 7.6 fL (7.4-10.4); Platelet Count 203 10x3/uL (130-400); RBC Distribution Width 13.8 % (11.5-14.5); Red Blood Cell (RBC) Count 5.32 mill/uL (4.70-6.10); White Blood Cell (WBC) Count 7.4 10x3/uL (4.8-10.8)
[2022-09-15 08:36] LABS: ALT (SGPT) 22 U/L (8-55); AST (SGOT) 18 U/L (5-34); Albumin 3.8 g/dL (3.4-4.8); Alkaline Phosphatase 56 U/L (40-110); Anion Gap 12 mmol/L (10-20); BUN (Urea Nitrogen) 10 mg/dL (8.4-25.7); Bilirubin, Total 0.5 mg/dL (0.2-1.2); Calc. Creatinine Clearance 0 mL/min (70-130); Calcium 9.4 mg/dL (7.8-10.44); Carbon Dioxide 27 mmol/L (23-31); Chloride 106 mmol/L (98-107); Estimated GFR 77; Globulin 2.5 g/dL (2.4-3.5); Glucose 105 mg/dL (83-110); Potassium 4.6 mmol/L (3.5-5.1); Protein, Total 6.3 g/dL (5.8-8.1); Sodium 140 mmol/L (136-145)
[2022-09-15] MEDS ORDERED: Ondansetron PF 4 MG/2 ML Vial ONE (08:37)
[2022-09-15] MEDS ORDERED: Ondansetron ODT 4 MG TAB ONE (08:41)
[2022-09-15] MEDS ORDERED: Aspirin Chewable 81 MG TAB ONE (09:33)
[2022-09-15 11:23] LABS: Troponin I 0.014 ng/mL (< 0.028)
[2022-09-15] MEDS ORDERED: Iopamidol-370 76% 500 ML 1 ML ONE (12:57)
[2022-09-15] MEDS ORDERED: Acetaminophen 325 MG TAB PO PRN (14:11)
[2022-09-15] MEDS ORDERED: Ondansetron PF 4 MG/2 ML Vial IVP PRN (14:11)
[2022-09-15] MEDS ORDERED: Acetaminophen 650 MG Suppository PR PRN (14:11)
[2022-09-15] MEDS ORDERED: Ondansetron ODT 4 MG TAB PO PRN (14:11)
[2022-09-15] MEDS ORDERED: Nitroglycerin 0.4 MG TAB (25 Tab Bottle) SL PRN (14:12)
[2022-09-15] MEDS ORDERED: Amlodipine 5 MG TAB PO SCH (14:15)
[2022-09-15 14:52] LABS: Troponin I Less than 0.010 ng/mL (< 0.028)
[2022-09-15] MEDS ORDERED: Carvedilol 6.25 MG TAB PO SCH (17:00)
[2022-09-15] MEDS ORDERED: Amlodipine 5 MG TAB ONE (18:47)
[2022-09-15 21:37] VITALS: BMI 32.3
[2022-09-16 05:05] LABS: #Basophils 0.1 thou/uL (0.0-0.2); #Eosinphils 0.6 thou/uL (0.0-0.7); #Lymphocytes 3.2 thou/uL (1.20-3.40); #Monocytes 0.7 thou/uL (0.11-0.59); #Neutrophils 3.8 thou/uL (1.40-6.50); %Basophils 1.2 % (0.0-1.0); %Eosinophils 7.3 % (0.0-10.0); %Lymphocytes 37.8 % (21.0-51.0); %Monocytes 7.8 % (0.0-10.0); %Neutrophils 45.9 % (42.0-75.0); Hemoglobin 15.4 g/dL (14.0-18.0); Mean Corpuscular HGB CONC 32.1 g/dL (32.0-36.0); Mean Corpuscular Hemoglobin 29.7 pg (27.0-31.0); Mean Corpuscular Volume 92.5 fl (78.0-98.0); Mean Platelet Volume 7.9 fL (7.4-10.4); Platelet Count 219 10x3/uL (130-400); RBC Distribution Width 13.9 % (11.5-14.5); Red Blood Cell (RBC) Count 5.17 mill/uL (4.70-6.10); White Blood Cell (WBC) Count 8.3 10x3/uL (4.8-10.8)
[2022-09-16 05:28] LABS: Anion Gap 12 mmol/L (10-20); BUN (Urea Nitrogen) 15 mg/dL (8.4-25.7); Calc. Creatinine Clearance 117 mL/min (70-130); Calcium 9.7 mg/dL (7.8-10.44); Carbon Dioxide 24 mmol/L (23-31); Chloride 107 mmol/L (98-107); Cholesterol 165 mg/dl (< 200 Desired); Estimated GFR 90; Glucose 94 mg/dL (83-110); HDL Cholesterol 33 mg/dL (>60 Neg Risk); LDL Cholesterol, Calculated 109 mg/dL; Potassium 4.2 mmol/L (3.5-5.1); Sodium 139 mmol/L (136-145); Triglycerides 115 mg/dL (Less than 150)
[2022-09-16 07:29] VITALS: TEMP 98.8
[2022-09-16] MEDS ORDERED: Aspirin Chewable 81 MG TAB PO SCH (09:00)
[2022-09-16] MEDS ORDERED: Amlodipine 5 MG TAB PO SCH ×2 (09:00→13:15)
[2022-09-16] MEDS ORDERED: Regadenoson 0.4 MG/5 ML SYRINGE ONE (11:09)
[2022-09-16 13:45] VITALS: BP 157/88
[2022-09-17] MEDS ORDERED: Amlodipine 5 MG TAB PO SCH (09:00)
== END 2022-09-16 14:42 | disposition home or self-care (01) ==
LOC: ERS 07:24 → ERHOLD 10:21 → 2SW 19:59
PROVIDERS: ADMIT Internal Medicine; ATTEND Internal Medicine
DX: R07.9 Chest pain, unspecified (principal); I16.0 Hypertensive urgency; I12.9 Hypertensive chronic kidney disease with stage 1 through stage 4 chronic kidney disease, or unspecified chronic kidney disease; N18.2 Chronic kidney disease, stage 2 (mild); E78.5 Hyperlipidemia, unspecified; G89.29 Other chronic pain; M54.50 Low back pain, unspecified; M19.90 Unspecified osteoarthritis, unspecified site; E66.9 Obesity, unspecified; Z68.32 Body mass index [BMI] 32.0-32.9, adult; Z79.899 Other long term (current) drug therapy; Z88.8 Allergy status to other drugs, medicaments and biological substances; Z20.822 Contact with and (suspected) exposure to COVID-19
CPT/HCPCS: 70450; 71045; 71275; 74174; 78452; 80048; 80053; 80061; 84484 ×2; 85025 ×2; 93005; 93017; 94760; 99285; A9500; G0378 ×3; U0003; U0005; 36415; A9521; J2405; J2785; Q0162; Q9967

== ENCOUNTER 2023-08-03 10:18 | Outpatient (CLI) | payer MEDICARE, BC | END 2023-08-03 10:19 | disposition home or self-care (01) | LOC: MRI 10:18 | PROVIDERS: ATTEND Surgery | DX: M47.26 Other spondylosis with radiculopathy, lumbar region (principal); M48.061 Spinal stenosis, lumbar region without neurogenic claudication; Z98.1 Arthrodesis status | CPT/HCPCS: 72120; 72148 ==

== ENCOUNTER 2024-07-04 05:50 | Emergency (ER) | payer MEDICARE, BC ==
[2024-07-04] MEDS ORDERED: HYDROcodone/Acetaminophen 10/325 mg Tablet ONE (06:24)
== END 2024-07-04 08:10 | disposition home or self-care (01) ==
LOC: ERS 05:50
DX: M54.50 Low back pain, unspecified (principal); M84.48XA Pathological fracture, other site, initial encounter for fracture
CPT/HCPCS: 72131

== ENCOUNTER 2024-07-21 16:26 | Outpatient (CLI) | payer MEDICARE, BC | END 2024-07-21 16:27 | disposition home or self-care (01) | LOC: RAD 16:26 | PROVIDERS: ATTEND Surgery | DX: S32.029A Unspecified fracture of second lumbar vertebra, initial encounter for closed fracture (principal); M47.816 Spondylosis without myelopathy or radiculopathy, lumbar region; Z98.1 Arthrodesis status; Z98.890 Other specified postprocedural states | CPT/HCPCS: 72100 ==